=== PATIENT | female | born 1990 | race Caucasian/White ===

== ENCOUNTER 2019-04-12 18:58 | Emergency (ER) | payer MEDICAID ==
[~2019-04-12] VITALS: Ht 165.1 cm; Wt 65.3 kg
[2019-04-12 19:12] VITALS: Ht 165.1 cm; Wt 65.3 kg
[2019-04-12 19:55] LABS: PLATELET COUNT 244 x10^3mcL (130-400); RED CELL DISTRIBUTION WIDTH 13.2 % (11.5-14.5)
[2019-04-12 20:00] LABS: microscopic required? YES; urine erythrocyte 2+ (NEGATIVE)
[2019-04-12 20:21] LABS: CALCIUM 8.8 mg/dL (8.5-10.1); CARBON DIOXIDE 25.8 mmol/L (21-32); CHLORIDE SERUM 99 mmol/L (98-107); CREATININE SERUM 1.1 mg/dL (0.6-1.0); GFR1 > 60 mL/min; GLUCOSE SERUM 107 mg/dL (74-106); POTASSIUM SERUM 3.5 mmol/L (3.5-5.1); SODIUM SERUM 136 mmol/L (136-145)
[2019-04-12 20:25] LABS: BAND NEUTROPHIL 8 % (0-10); METAMYELOCTE 5 % (0-2); MONOCYTE 11 % (0-7); SEGMENTED NEUTROPHILS 71 % (37-75); rbc morphology (normal/abnorm) NORMAL (NORMAL)
[2019-04-12 20:26] LABS: PLATELET MORPHOLOGY LARGE PLATELET SEEN
[2019-04-12 20:34] LABS: ALKALINE PHOSPHATASE 140 U/L (46-116); ALT/SGPT 27 U/L (14-59); AST/SGOT 21 U/L (15-37); BILIRUBIN TOTAL 0.7 mg/dL (0.20-1.00); FREE T4 1.48 ng/dL (0.76-1.46); LIPASE 92 IU/L (73-393); TOTAL PROTEIN, SERUM 7.2 g/dL (6.4-8.2)
[2019-04-12 20:35] LABS: ALBUMIN 2.5 g/dL (3.4-5.0)
[2019-04-12 23:25] VITALS: BP 113/75
== END 2019-04-12 23:25 | disposition home or self-care (01) ==
LOC: ED 18:58
PROVIDERS: Emergency Medicine
DX: N12 Tubulo-interstitial nephritis, not specified as acute or chronic (principal)
CPT/HCPCS: 84439; 86308; 87804; J1885; J7030